=== PATIENT | female | born 1995 | race African-American/Black ===

== ENCOUNTER 2018-04-19 15:22 | Inpatient (IN) | payer SELFPAY ==
[2018-04-19 15:50] LABS: Absolute Lymphocytes (CBC) 1.9 K/uL (0.7-4.9); Absolute Monocytes 0.7 K/uL (0.1-1.3); Absolute Neutrophil 7.3 K/uL (1.8-8.0); Basophils % 0.5 % (0-1.3); Eosinophils % 1.1 % (0-4.4); Hematocrit 40.5 % (36.0-45.0); Lymphocytes % 18.7 % (15.3-44.8); MPV 8.9 fL (7.6-11.3); Monocytes % 7.2 % (3.3-12.3); RBC Red Blood Cell Count 4.61 M/uL (3.86-4.86)
[2018-04-19] MEDS ORDERED: ONDANSETRON 4 MG/2 ML VIAL ONE (16:23)
[2018-04-19] MEDS ORDERED: PROMETHAZINE 25 MG/ML VIAL ONE ×2 (16:24→18:26)
--- NOTE | 2018-04-19 16:46 | EKG ---
Test Date: 2018-04-19 Test Time: 15:37:18 Patient Care Technician Instructor: LORRIE MEASUREMENT RESULTS: Intervals: Rate: 85 AR: 150 QRSD: 82 QT: 408 QTc: 485 [place]: P: 75 AR: 150 QRS: 97 T: 60 INTERPRETIVE STATEMENTS: Normal sinus rhythm Rightward axis Prolonged QT Abnormal ECG No previous ECG available for comparison Electronically Signed On 04-19-18 16:45:18 ELECTRIC SYSTEM OPERATOR by Daniel Brown
[2018-04-19 17:19] LABS: Protime INR 1.24
[2018-04-19 17:32] LABS: ALT/SGPT 18 U/L (12-78); AST/SGOT 13 U/L (15-37); Albumin 4.1 g/dL (3.4-5.0); Alkaline Phosphatase 54 U/L (45-117); BUN Blood Urea Nitrogen 14 mg/dL (7-18); Bicarbonate 23 mmol/L (21-32); Bilirubin Direct 0.2 mg/dL (0-0.2); Bilirubin Total 0.5 mg/dL (0.2-1.0); Glucose Level 79 mg/dL (74-106); Potassium 4.3 mmol/L (3.5-5.1); Protein, Total 7.8 g/dL (6.4-8.2); Sodium Level 139 mmol/L (136-145)
--- NOTE | 2018-04-19 17:53 | ER ---
Nurse's Notes [facility] Name: Caprice Rojas Age: 22 yrs Sex: Female : 1995 Arrival Date: 04/19/2018 Time: 15:32 Bed 3 Private MD: Diagnosis: Suicide attempt Presentation: 04/19 15:20 Presenting complaint: EMS states: Pt took 10 tabs of Sertraline 50 mg, 3 tabs of sv Wellbutrin XL 150 mg, 3 tabs of Clonazepam 1mg starting about 2 hours ago. Pt was found by the friend and called EMS, friend made her vomit but no pill fragments came out. ST, 20 G L AC, BP 138/80 HR-102 99% RA RR-16. Transition of care: patient was not received from another setting of care. Onset of symptoms was April 19, 2018 at 13:00. Risk Assessment: Do you want to hurt yourself or someone else? Patient reports desire/thoughts of hurting themselves or someone else. Provider notified. Initial Sepsis Screen: Does the patient meet any 2 criteria? No. Patient's initial sepsis screen is negative. Does the patient have a suspected source of infection? No. Patient's initial sepsis screen is negative. Care prior to arrival: IV initiated. 20 GA, in the left antecubital area. 15:20 Method Of Arrival: EMS: [facility] sv 15:20 Acuity: JARVIS 2 sv 15:30 Note Pt asked the reason for taking an excess amount of pills. Pt stated "I wanted to sv .". Triage Assessment: 15:30 General: Appears in no apparent distress. comfortable, slender, well developed, sv Behavior is cooperative, drowsy. Pain: Complains of pain in head. Neuro: Level of Consciousness is obeys commands, lethargic, Oriented to person, place, time, situation, Moves all extremities. Full function Gait is steady, Speech is normal, Reports dizziness, headache. 15:30 Cardiovascular: Patient's skin is warm and dry. Rhythm is sinus rhythm. Respiratory: sv Respiratory effort is even, unlabored, Respiratory pattern is regular, symmetrical. Derm: Skin is pink, warm \\T\\ dry. Historical: - Allergies: 15:53 No Known Allergies; sv - Home Meds: 15:54 Wellbutrin XL 150 mg Oral Tb24 1 tab once daily [Active]; sertraline 50 mg oral tab 1 sv tab once daily [Active]; - PMHx: 15:53 Depression; Anxiety; sv - PSHx: 15:53 None; sv - Immunization history:: Adult Immunizations up to date. - Ebola Screening: : No symptoms or risks identified at this time. - Social history:: Smoking status: unknown. Screenin:56 Abuse screen: Denies threats or abuse. Denies injuries from another. Nutritional sv screening: No deficits noted. Tuberculosis screening: No symptoms or risk factors identified. Fall Risk None identified. Assessment: 15:35 Reassessment: Case # [id number], spoke with Ranjith from the [facility] poison control. sv Stated to have pt be on continuous cardiac monitoring, EKG now and repeat in 6 hrs and check for QT prolongation, toxic workup, psych consult, observation 24 hrs. With Sertraline watch for seizures, dry mouth, headache, tachycardia, provide symptomatic care. Wellbutrin XL watch for tremors and mild HTN. May give Benzo's prn for agitation, seizures, or tremors. 16:15 Reassessment: Patient appears in no apparent distress at this time. No changes from sv previously documented assessment. Patient and/or family updated on plan of care and expected duration. Pain level reassessed. Patient is alert, oriented x 3, equal unlabored respirations, skin warm/dry/pink. GI: Pt is actively vomiting bile. 19:15 Reassessment: Patient appears in no apparent distress at this time. Patient resting, lp1 eyes closed, respirations unlabored; easy to arouse; Family at bedside, aware of admission. Derm: Skin is pink, warm \\T\\ dry. Psych: 15:45 Safety Checks: Personal items have been removed. Door is open. No visitors are present sv at this time. 15:55 Subjective: Patient's mood is sad, hopeless, Delusions are denied, Hallucinations are sv denied Having thoughts of suicide. Plan for suicide is pt overdosed on Sertraline, Wellbutrin XL, Clonazepam, stated "I wanted to .". Objective: Patient is cooperative, Speech is soft, Affect is flat. Interventions: Removed personal items and placed in bag. Patient placed in hospital gown. Searched person for dangerous items. Belonging list filled out. Patient reassessed during use of restraints. Patient is physically safe. Patient's cardiac status is stable. Patient's respirations are even and unlabored. Patient has good circulation in all extremities as indicated by capillary refill < 3 seconds. Patient's ROM assessed and is intact. Patient nutrition and hydration needs will continue to be monitored and addressed. Patient hygiene and elimination needs met. Patient assessed for signs of distress. Patient remains reasonably comfortable at this time. Assisted patient in de-escalation of behavior by removing stimuli causing behavior where possible. Suicide Risk Assessment: Sad Person Scale: Sex of patient: Female: Score 0 points. Age of patient: Score 1 point if patient 15-34. Depression: Score 1 point if signs of depression are present. Previous Attempt: Score 1 point if patient has previously attempted suicide. Substance Abuse: Score 0 point if patient does not abuse alcohol or drugs. Rational Thinking: Score 0 point if patient has rational thinking. Social Support: Score 0 if social support is present/available. Organized Plan: Score 1 point if patient had a plan in place. Relationship: Score 1 point if patient is , , , or for a single male Chronic Sickness: Score 0 point if patient does not have a chronic illness, debilitating, or severe disorder. TOTAL POINTS: If total points are 5-6, proposed clinical action is to strongly consider hospitalization, depending upon confidence in the follow-up arrangement. Implement suicide precautions. Pt denies substance abuse. Commitment: Patient will be a voluntary commitment. Overdose: 15:55 Patient took 10 tabs Sertraline 50 mg, 3 tabs Wellbutrin XL 150 mg, 3 tabs Clonazepam 1 sv mg. Overdose occurred 2-3 hours ago. Vital Signs: 15:30 BP 130 / 87; Pulse 103; Resp 22; Temp 98.5; Pulse Ox 100% ; Weight 49.9 kg; Height 5 sv ft. 3 in. (160.02 cm); Pain 4/10; 15:53 BP 105 / 64; Pulse 81; Resp 18; Pulse Ox 100% on R/A; jb1 16:53 BP 108 / 67; Pulse 91; Resp 17; Pulse Ox 100% on R/A; jb1 18:32 BP 92 / 58; Pulse 78; Resp 14; Pulse Ox 100% on R/A; mt 19:11 BP 108 / 74; Pulse 74; Resp 14; Pulse Ox 100% on R/A; mt 15:30 Body Mass Index 19.49 (49.90 kg, 160.02 cm) sv ED Course: 15:20 Initial lab(s) drawn, by me, sent to lab. Maintain EMS IV. Dressing intact. Good blood sv return noted. Site clean \\T\\ dry. Gauge \\T\\ site: 20G L AC. Flushed left antecubital with 5 ml normal saline. 15:30 Patient has correct armband on for positive identification. Placed in gown. Bed in low sv position. Side rails up X2. Seizure precautions initiated. surveillance system monitor on. Pulse ox on. NIBP on. Warm blanket given. Head of bed elevated. 15:32 Patient arrived in ED. jr8 15:32 Rickie Castro PA is PHCP. jr8 15:32 Jose Niño MD is Attending Physician. jr8 15:34 Kat Flores RN is Primary Nurse. sv 15:45 Safety checks: Items removed: Door open/sign placed on door: yes. Sitter present: Yes. jb1 15:52 Triage completed. sv 16:00 Safety checks: Items removed: yes. Door open/sign placed on door: yes. Family/friend jb1 present: no. Sitter present: Yes. 16:15 Safety checks: Items removed: yes. Door open/sign placed on door: yes. Family/friend jb1 present: yes. Family/friends encouraged to stay with patient. Sitter present: Yes. 16:18 Lab(s) recollected, by me, sent to lab. jb1 16:28 EKG done, by electron beam photo mask technician. reviewed by Rickie CALDERON. 3 16:30 Safety checks: Items removed: yes. Door open/sign placed on door: yes. Family/friend jb1 present: yes. Family/friends encouraged to stay with patient. Sitter present: Yes. 16:45 Safety checks: Items removed: yes. Door open/sign placed on door: yes. Family/friend jb1 present: no. Sitter present: Yes. 17:00 Safety checks: Items removed: yes. Door open/sign placed on door: yes. Family/friend jb1 present: no. Sitter present: Yes. 17:15 Safety checks: Items removed: yes. Door open/sign placed on door: yes. Family/friend jb1 present: no. Sitter present: Yes. 17:30 Safety checks: Items removed: yes. Door open/sign placed on door: yes. Family/friend jb1 present: no. Sitter present: Yes. 17:41 Safety checks: Items removed: yes. Door open/sign placed on door: yes. Family/friend jb1 present: yes. Family/friends encouraged to stay with patient. Sitter present: Yes. 17:45 Safety Checks: Personal items have been removed. The door is open or patient has been sv placed in a hallway bed/chair. A family member and/or friend is present and encouraged to stay. Sitter present at this time. 17:52 Bryan Lewis MD is Hospitalizing Provider. jr8 18:00 Safety checks: Items removed: yes. Door open/sign placed on door: yes. Family/friend mt present: yes. Sitter present: Yes. 18:15 Safety checks: Items removed: yes. Door open/sign placed on door: yes. Family/friend mt present: yes. Sitter present: Yes. 18:30 Safety checks: Items removed: yes. Door open/sign placed on door: yes. Family/friend mt present: yes. Sitter present: Yes. 18:35 Straight cath inserted, using sterile technique, 16 Fr. Could not get a urine sample lt1 from the straight cath. Patient voided in a bed coe. 18:45 Safety checks: Items removed: yes. Door open/sign placed on door: yes. Family/friend mt present: yes. Sitter present: Yes. 19:00 Safety checks: Items removed: yes. Door open/sign placed on door: yes. Family/friend mt present: yes. Sitter present: Yes. 19:00 Urine --Ancillary (enter results) Sent. sv 19:00 Urine Dipstick--Ancillary (enter results) Sent. sv 19:15 Safety checks: Items removed: yes. Door open/sign placed on door: yes. Family/friend mt present: yes. Sitter present: Yes. 19:20 Report given to Tamera RN and Karina RN. sv 19:29 Primary Nurse role handed off by Kat Flores RN sv 19:39 Karina Quinn, RN is Primary Nurse. lp1 19:41 Arm band placed on. lp1 19:41 No provider procedures requiring assistance completed. Patient admitted, IV remains in lp1 place. Administered Medications: 16:19 Drug: Phenergan 6.25 mg Route: IVP; Site: left antecubital; sv 16:59 Follow up: Response: No adverse reaction sv 18:00 Drug: Phenergan 6.25 mg Route: IVP; Site: left antecubital; sv 18:30 Follow up: Response: No adverse reaction sv 18:00 Drug: NS 0.9% 1000 ml Route: IV; Rate: 1000 ml; Site: left antecubital; sv 19:42 Follow up: IV Status: Completed infusion; IV Intake: 1000ml lp1 Intake: 19:42 IV: 1000ml; Total: 1000ml. lp1 Outcome: 17:52 Decision to Hospitalize by Provider. jr8 19:42 critical lp1 19:42 Instructed on the need for admit. 19:45 Admitted to ICU accompanied by nurse, accompanied by tech, family with patient, via lp1 stretcher, room 3, on monitor, with chart, Report called to Saba Jewell RN 19:45 Patient left the ED. lp1 Signatures: [place] jb1 Kat Flores, RN RN Karina Quinn, RN RN lp1 Rickie Castro PA PA 8 Josh, Shannan nd Jewels rOr [facility] Corrections: (The following items were deleted from the chart) 16:23 15:43 Safety checks: Items removed: Door open/sign placed on door: yes. Sitter present: jb1 Yes. lt1 16:23 15:54 Safety checks: Items removed: yes. Door open/sign placed on door: yes. jb1 Family/friend present: no. Sitter present: Yes. jb1 16:23 16:18 Safety checks: Items removed: yes. Door open/sign placed on door: yes. jb1 Family/friend present: yes. Family/friends encouraged to stay with patient. Sitter present: Yes. jb1 16:57 16:53 BP 99 / 59; Pulse 79bpm; Resp 17bpm; Pulse Ox 100% RA; jb1 jb1 17:22 16:57 Safety checks: Items removed: yes. Door open/sign placed on door: yes. jb1 Family/friend present: no. Sitter present: Yes. jb1 17:23 17:23 Safety checks: Items removed: yes. Door open/sign placed on door: yes. jb1 Family/friend present: no. Sitter present: Yes. jb1 19:59 19:58 Patient left the ED. lp1 lp1
--- NOTE | 2018-04-19 17:53 | EDPHYS ---
Physician Documentation [facility] Name: Caprice Rojas Age: 22 yrs Sex: Female : 1995 Arrival Date: 04/19/2018 Time: 15:32 Bed 3 Private MD: ED Physician Jose Niño HPI: 04/19 15:49 This 22 yrs old Black Female presents to ER via Unassigned with complaints of Overdose. jr8 15:49 The patient presents to the emergency department after a known overdose, that was jr8 intentional. Context: Method: the patient has a confirmed or suspected ingestion, of benzodiazepines, zoloft, Wellbutrin , Time: 2 hour(s) ago, the OD/poisoning occurred at at home, Psychiatric history: the patient has a known psychiatric disorder, depression, Previous OD/poisoning history: none. Associated signs and symptoms: Pertinent positives: depression. Severity of symptoms: At their worst the symptoms were moderate in the emergency department the symptoms are unchanged. The patient has not experienced similar symptoms in the past. The patient has not recently seen a physician. Stated that she has had increased anxiety and depression due to financial status and living situation. Came to a climactic point today in which she felt the urge to kill herself. Took three Wellbutrin, three Klonopin, and ten Zoloft in about a 2 hours period of time. Denies having ever tried to kill herself before . Historical: - Allergies: 15:53 No Known Allergies; sv - Home Meds: 15:54 Wellbutrin XL 150 mg Oral Tb24 1 tab once daily [Active]; sertraline 50 mg oral tab 1 sv tab once daily [Active]; - PMHx: 15:53 Depression; Anxiety; sv - PSHx: 15:53 None; sv - Immunization history:: Adult Immunizations up to date. - Ebola Screening: : No symptoms or risks identified at this time. - Social history:: Smoking status: unknown. ROS: 15:54 Eyes: Negative for injury, pain, redness, and discharge, ENT: Negative for injury, jr8 pain, and discharge, Neck: Negative for injury, pain, and swelling, Cardiovascular: Negative for chest pain, palpitations, and edema, Respiratory: Negative for shortness of breath, cough, wheezing, and pleuritic chest pain, Abdomen/GI: Negative for abdominal pain, nausea, vomiting, diarrhea, and constipation, Back: Negative for injury and pain, MS/Extremity: Negative for injury and deformity, Skin: Negative for injury, rash, and discoloration, Neuro: Negative for headache, weakness, numbness, tingling, and seizure. 15:54 Psych: Positive for anxiety, depression, suicide gesture. Exam: 15:54 Eyes: Pupils equal round and reactive to light, extra-ocular motions intact. Lids and jr8 lashes normal. Conjunctiva and sclera are non-icteric and not injected. Cornea within normal limits. Periorbital areas with no swelling, redness, or edema. ENT: Nares patent. No nasal discharge, no septal abnormalities noted. Tympanic membranes are normal and external auditory canals are clear. Oropharynx with no redness, swelling, or masses, exudates, or evidence of obstruction, uvula midline. Mucous membranes moist. Neck: Trachea midline, no thyromegaly or masses palpated, and no cervical lymphadenopathy. Supple, full range of motion without nuchal rigidity, or vertebral point tenderness. No Meningismus. Chest/axilla: Normal chest wall appearance and motion. Nontender with no deformity. No lesions are appreciated. Cardiovascular: Regular rate and rhythm with a normal S1 and S2. No gallops, murmurs, or rubs. Normal PMI, no JVD. No pulse deficits. Respiratory: Lungs have equal breath sounds bilaterally, clear to auscultation and percussion. No rales, rhonchi or wheezes noted. No increased work of breathing, no retractions or nasal flaring. Abdomen/GI: Soft, non-tender, with normal bowel sounds. No distension or tympany. No guarding or rebound. No evidence of tenderness throughout. Back: No spinal tenderness. No costovertebral tenderness. Full range of motion. Skin: Warm, dry with normal turgor. Normal color with no rashes, no lesions, and no evidence of cellulitis. MS/ Extremity: Pulses equal, no cyanosis. Neurovascular intact. Full, normal range of motion. Neuro: Awake and alert, GCS 15, oriented to person, place, time, and situation. Cranial nerves II-XII grossly intact. Motor strength 5/5 in all extremities. Sensory grossly intact. Cerebellar exam normal. Normal gait. 15:54 Psych: Behavior/mood is cooperative, suicidal, depressed, Affect is calm, Oriented to person, place, time, Patient having thoughts of suicide. Plan for suicide is See HPI Memory is normal. Delusions/hallucinations are not present. Vital Signs: 15:30 BP 130 / 87; Pulse 103; Resp 22; Temp 98.5; Pulse Ox 100% ; Weight 49.9 kg; Height 5 sv ft. 3 in. (160.02 cm); Pain 4/10; 15:53 BP 105 / 64; Pulse 81; Resp 18; Pulse Ox 100% on R/A; jb1 16:53 BP 108 / 67; Pulse 91; Resp 17; Pulse Ox 100% on R/A; jb1 18:32 BP 92 / 58; Pulse 78; Resp 14; Pulse Ox 100% on R/A; mt 19:11 BP 108 / 74; Pulse 74; Resp 14; Pulse Ox 100% on R/A; mt 15:30 Body Mass Index 19.49 (49.90 kg, 160.02 cm) sv MDM: 15:32 Patient medically screened. [facility] 17:51 Data reviewed: vital signs, nurses notes, lab test result(s), EKG. Data interpreted: jr8 Pulse oximetry: on room air is 100 %. Interpretation: normal. Counseling: I had a detailed discussion with the patient and/or guardian regarding: the historical points, exam findings, and any diagnostic results supporting the discharge/admit diagnosis, lab results, the need for further work-up and treatment in the hospital. Physician consultation: Bryan Lewis MD was called at 17:52, was contacted at 17:52, regarding admission, to the ICU, consult, patient's condition, and will see patient in ED. 04/19 15:32 Order name: Acetaminophen; Complete Time: 17:41 04/19 15:32 Order name: Basic Metabolic Panel; Complete Time: 17:41 04/19 15:32 Order name: CBC with Diff; Complete Time: 15:55 04/19 15:32 Order name: ETOH Level; Complete Time: 17:41 04/19 15:32 Order name: Hepatic Function; Complete Time: 17:41 04/19 15:32 Order name: PT-INR; Complete Time: 17:41 04/19 15:32 Order name: Ptt, Activated; Complete Time: 17:41 04/19 15:32 Order name: Salicylate; Complete Time: 18:06 [facility] 04/19 15:32 Order name: Urine Drug Screen; Complete Time: 18:55 [facility] 04/19 18:34 Order name: Urine Dipstick--Ancillary (enter results) 04/19 18:34 Order name: Urine --Ancillary (enter results) 04/19 18:49 Order name: Urine --Ancillary; Complete Time: 18:55 [facility] 04/19 18:49 Order name: Urine Dipstick-Ancillary; Complete Time: 18:55 [facility] 04/19 15:32 Order name: Urine Test (obtain specimen); Complete Time: 18:26 [facility] 04/19 15:32 Order name: EKG; Complete Time: 15:33 [facility] 04/19 15:32 Order name: EKG - Nurse/Tech; Complete Time: 15:47 [facility] 04/19 15:32 Order name: IV Saline Lock; Complete Time: 15:47 [facility] 04/19 15:32 Order name: Labs collected and sent; Complete Time: 15:47 [facility] 04/19 15:32 Order name: Urine Dipstick-Ancillary (obtain specimen); Complete Time: 18:26 [facility] Administered Medications: 16:19 Drug: Phenergan 6.25 mg Route: IVP; Site: left antecubital; sv 16:59 Follow up: Response: No adverse reaction sv 18:00 Drug: Phenergan 6.25 mg Route: IVP; Site: left antecubital; sv 18:30 Follow up: Response: No adverse reaction sv 18:00 Drug: NS 0.9% 1000 ml Route: IV; Rate: 1000 ml; Site: left antecubital; sv 19:42 Follow up: IV Status: Completed infusion; IV Intake: 1000ml lp1 Disposition: 04/19/18 17:52 Hospitalization ordered by Bryan Lewis for Inpatient Admission. Preliminary diagnosis is Suicide attempt. - Bed requested for Intensive Care Unit. - Status is Inpatient Admission. lp1 - Condition is Stable. - Problem is new. - Symptoms have improved. UTI on Admission? No Addendum: 04/23/2018 11:06 Co-signature as Attending Physician, Jose Niño MD I agree with the assessment and c rincon plan of care. Signatures: Dispatcher [employer] EDAndreas Lynie, RN RN sv Jose Niño MD MD cha Pena, Laura, TONIA RN lp1 Rickie Castro PA PA jr8 Diann Carmona Corrections: (The following items were deleted from the chart) 04/19 15:54 15:49 stated that she has had increased anxiety and depression due to financial status jr8 and living situation. came to a climactic point today in which she felt the urge to kill herself. Took three Wellbutrin, three Klonopin, and ten Zoloft in about a 2 hours period of time . jr8 17:53 17:52 Hospitalization Ordered by Bryan Lewis MD for Observation. Preliminary diagnosis jr8 is Suicide attempt. Bed requested for Intensive Care Unit. Status is Observation. Condition is Stable. Problem is new. Symptoms have improved. UTI on Admission? No. jr8 18:26 17:51 [place] ordered. jr8 18:37 17:53 04/19/2018 17:52 Hospitalization Ordered by Bryan Lewis MD for Inpatient eb Admission. Preliminary diagnosis is Suicide attempt. Bed requested for Intensive Care Unit. Status is Inpatient Admission. Condition is Stable. Problem is new. Symptoms have improved. UTI on Admission? No. jr8 19:58 18:37 04/19/2018 17:52 Hospitalization Ordered by Bryan Lewis MD for Inpatient 1 Admission. Preliminary diagnosis is Suicide attempt. Bed requested for Intensive Care Unit. Status is Inpatient Admission. Condition is Stable. Problem is new. Symptoms have improved. UTI on Admission? No. eb
[2018-04-19] MEDS ORDERED: NA CHLORIDE 0.9% 1,000 ML ONE (18:27)
[2018-04-19 18:48] LABS: Barbiturates NEGATIVE (NEGATIVE); Benzodiazepines POSITIVE (NEGATIVE); Cocaine NEGATIVE (NEGATIVE); METHAMPHETAM NEGATIVE (NEGATIVE); Methadone NEGATIVE (NEGATIVE); Opiates NEGATIVE (NEGATIVE); Phencyclidine NEGATIVE (NEGATIVE); THC Cannibis NEGATIVE (NEGATIVE)
[2018-04-19 18:48] LABS: Urine Blood 1+ (NEG); Urine Glucose NEGATIVE (NEG); Urine Protein TRACE (NEG); Urine pH 5.5 (5.0-7.0)
[2018-04-19] MEDS ORDERED: ACETAMINOPHEN 500 MG TAB PO PRN (20:12)
--- NOTE | 2018-04-19 20:29 | P.HP ---
Certification for Inpatient Patient admitted to: Inpatient With expected LOS: >2 Midnights Practitioner: I am a practitioner with admitting privileges, knowledge of patient current condition, hospital course, and medical plan of care. Services: Services provided to patient in accordance with Admission requirements found in Title 42 Section 412.3 of the Code of Federal Regulations Patient History Date of Service: 04/19/18 Reason for admission: suicidal attempt, drug overdose History of Present Illness: Ms Rojas is a 22 years old woman with history of depression and anxiety, who was found by a friend this afternoon, after ingest intentionally 10 tabs of Sertraline 50 mg, 3 tabs of Wellbutrin XL 150 mg, 3 tabs of Clonazepam 1mg. Her friend made her vomiting but no pill came out. At arrival she was drowsy but cooperative. She stated that she took the pills because she wanted to . Lab work at arrival was mostly unremarkable, UA shows trace leukocyte esterase, EKG SR with QT prolongation. Allergies No Known Allergies Allergy (Unverified 04/19/18 20:12) Home medications list reviewed: Yes - Past Medical/Surgical History -: depression -: anxiety Past Surgical History: Reviewed- Non-Contributory - Family History Family History: Reviewed- Non-Contributory - Social History Smoking Status: Unknown if ever smoked Place of Residence: Home Review of Systems 10-point ROS is otherwise unremarkable Physical Examination - Vital Signs Temperature: 98.5 F Blood Pressure: 108/74 Pulse: 74 Respirations: 14 - Physical Exam General: In no apparent distress, Other (drowsy but able to answer questions and follow commands.) HEENT: Atraumatic, Mucous membr. moist/pink, Other (pupils are dilated but reactive to light. ), EOMI, Sclerae nonicteric Neck: Supple, 2+ carotid pulse no bruit, No LAD, Without JVD or thyroid abnormality Respiratory: Clear to auscultation bilaterally, Normal air movement Cardiovascular: Regular rate/rhythm, Normal S1 S2 Gastrointestinal: Normal bowel sounds, No tenderness Musculoskeletal: No tenderness Integumentary: No rashes Neurological: Normal strength at 5/5 x4 extr, Abnormal speech (slurred), Abnormal tone (flaccid), Abnormal affect Lymphatics: No axilla or inguinal lymphadenopathy - Studies Laboratory Data (last 24 hrs) 04/19/18 16:05: PT 14.7 H, INR 1.24, APTT 26.9 04/19/18 16:05: Sodium 139, Potassium 4.3, BUN 14, Creatinine 0.74, Glucose 79, Total Bilirubin 0.5, AST 13 L, ALT 18, Alkaline Phosphatase 54 04/19/18 15:35: WBC 10.2, Hgb 13.6, Hct 40.5, Plt Count 257 Assessment and Plan - Problems (Diagnosis) (1) Suicide attempt Current Visit: Yes Status: Acute (2) Drug overdose Current Visit: Yes Status: Acute Qualifiers: Encounter type: initial encounter Injury intent: intentional self-harm Qualified Code(s): T50.902A - Poisoning by unspecified drugs, medicaments and biological substances, intentional self-harm, initial encounter (3) Depression Current Visit: Yes Status: Acute Qualifiers: Depression Type: major depressive disorder Major depression recurrence: unspecified whether recurrent Active/Remission status: currently active Major depression episode severity: unspecified Qualified Code(s): F32.9 - Major depressive disorder, single episode, unspecified - Plan The case was reported to poison control. They have recommend to monitor for 24Hr , seizure precautions, electrolyte follow up, and assistant track and field coach. The patient is in ICU. The patient will be transfer to psych facility for stabilization once clinically clear. Will start empiric antibiotic treatment for no complicated UTI. - Advance Directives Does patient have a Living Will: No Does patient have a Durable POA for Healthcare: No - Code Status/Comfort Care Code Status Assessed: Yes Code Status: Full Code
[2018-04-19] MEDS: D5 0.45 NS 1,000 ML IV SCH (21:55)
[2018-04-19] MEDS: Ciprofloxacin 200mg IV 200 MG/100 ML IV.SOLN. IV SCH (21:58)
[2018-04-20 00:41] LABS: BUN Blood Urea Nitrogen 12 mg/dL (7-18); Bicarbonate 23 mmol/L (21-32); Glucose Level 119 mg/dL (74-106); Magnesium 2.1 mg/dL (1.8-2.4); Phosphorus 3.1 mg/dL (2.5-4.9); Sodium Level 139 mmol/L (136-145)
[2018-04-20 05:18] LABS: Absolute Lymphocytes (CBC) 1.7 K/uL (0.7-4.9); Absolute Neutrophil 8.4 K/uL (1.8-8.0); Basophils % 0.6 % (0-1.3); Eosinophils % 0.6 % (0-4.4); Hematocrit 34.9 % (36.0-45.0); Lymphocytes % 15.2 % (15.3-44.8); MPV 9.1 fL (7.6-11.3); Monocytes % 8.6 % (3.3-12.3); RBC Red Blood Cell Count 3.95 M/uL (3.86-4.86)
[2018-04-20 05:35] LABS: ALT/SGPT 15 U/L (12-78); AST/SGOT 11 U/L (15-37); Albumin 3.2 g/dL (3.4-5.0); Alkaline Phosphatase 43 U/L (45-117); BUN Blood Urea Nitrogen 9 mg/dL (7-18); Bicarbonate 23 mmol/L (21-32); Bilirubin Total 0.8 mg/dL (0.2-1.0); Glucose Level 97 mg/dL (74-106); Magnesium 2.2 mg/dL (1.8-2.4); Phosphorus 3.2 mg/dL (2.5-4.9); Protein, Total 6.4 g/dL (6.4-8.2); Sodium Level 139 mmol/L (136-145)
[2018-04-20] MEDS: D5 0.45 NS 1,000 ML IV SCH (06:10)
--- NOTE | 2018-04-20 08:27 | EKG ---
Test Date: 2018-04-20 Test Time: 00:22:50 Metal Drill Operator: RT MEASUREMENT RESULTS: Intervals: Rate: 86 SC: 146 QRSD: 86 QT: 414 QTc: 495 [place]: P: 72 SC: 146 QRS: 98 T: 56 INTERPRETIVE STATEMENTS: Normal sinus rhythm Rightward axis Prolonged QT Abnormal ECG Compared to ECG 04/19/2018 15:37:18 No significant changes Electronically Signed On 04-20-18 08:26:19 BASTING MACHINE OPERATOR by Daniel Brown
[2018-04-20] MEDS: Ciprofloxacin 200mg IV 200 MG/100 ML IV.SOLN. IV SCH (08:45)
[2018-04-20] MEDS ORDERED: ENOXAPARIN 40 MG/0.4 ML SQ SCH (09:00)
[2018-04-20] MEDS ORDERED: INFLUENZA VACCINE (for 3y+) 0.5 ML DOSE IMVAC ONE (09:00)
--- NOTE | 2018-04-20 12:10 | EKG ---
Test Date: 2018-04-20 Test Time: 08:53:16 Cost And Sales Record Supervisor: RT MEASUREMENT RESULTS: Intervals: Rate: 73 MA: 140 QRSD: 84 QT: 414 QTc: 456 [place]: P: 71 MA: 140 QRS: 94 T: 58 INTERPRETIVE STATEMENTS: Normal sinus rhythm Rightward axis Borderline ECG Compared to ECG 04/20/2018 00:22:50 Prolonged QT interval no longer present Electronically Signed On 04-20-18 12:09:21 SAMPLER RADIOACTIVE WASTE by Daniel Brown
--- NOTE | 2018-04-20 16:22 | P.PN ---
Subjective Date of Service: 04/20/18 Chief Complaint: suicidal attempt, drug overdose Subjective: Improving Patient seen and examined chart reviewed and case discussed with RN. No acute events overnight. Patient much more awake and alert this morning. Review of Systems 10-point ROS is otherwise unremarkable Physical Examination - Vital Signs Temperature: 98.6 F Blood Pressure: 101/56 Pulse: 73 Respirations: 16 Pulse Ox (%): 76 - Physical Exam General: Alert, In no apparent distress, Oriented x3 HEENT: Atraumatic, PERRLA, EOMI Neck: Supple, JVD not distended Respiratory: Clear to auscultation bilaterally, Normal air movement Cardiovascular: No edema, Normal pulses, Regular rate/rhythm, Normal S1 S2 Gastrointestinal: Normal bowel sounds, Soft and benign, Non-distended, No tenderness Musculoskeletal: No clubbing, No tenderness Integumentary: No rashes, No erythema, No cyanosis Neurological: Normal speech, Normal strength at 5/5 x4 extr, Normal tone, Cranial nerves 3-12 intact, Normal affect - Studies Laboratory Data (last 24 hrs) 04/19/18 16:05: PT 14.7 H, INR 1.24, APTT 26.9 04/19/18 16:05: Sodium 139, Potassium 4.3, BUN 14, Creatinine 0.74, Glucose 79, Total Bilirubin 0.5, AST 13 L, ALT 18, Alkaline Phosphatase 54 Medications List Reviewed: Yes Assessment And Plan - Current Problems (Diagnosis) (1) Suicide attempt Current Visit: Yes Status: Acute (2) QT prolongation Current Visit: Yes Status: Acute (3) Depression Current Visit: Yes Status: Acute Qualifiers: Depression Type: major depressive disorder Major depression recurrence: unspecified whether recurrent Active/Remission status: currently active Major depression episode severity: unspecified Qualified Code(s): F32.9 - Major depressive disorder, single episode, unspecified (4) Drug overdose Current Visit: Yes Status: Acute Qualifiers: Encounter type: initial encounter Injury intent: intentional self-harm Qualified Code(s): T50.902A - Poisoning by unspecified drugs, medicaments and biological substances, intentional self-harm, initial encounter - Plan Repeat EKG [facility] eval Continue suicide precautions Continue cardiac telemetry Regular diet Dc IV fluid Discontinue antibiotics no signs of UTI no dysuria Discharge Plan: Psychiatry Plan to discharge in: 24 Hours - Code Status/Comfort Care Code Status Assessed: Yes
--- NOTE | 2018-04-20 17:30 | P.DS ---
Admission Date: 04/19/18 Discharge Date: 04/20/18 Disposition: ROUTINE DISCHARGE Discharge Condition: GOOD Reason for Admission: suicidal attempt, drug overdose - Problems (1) Suicide attempt Current Visit: Yes Status: Acute (2) QT prolongation Current Visit: Yes Status: Acute (3) Depression Current Visit: Yes Status: Acute Qualifiers: Depression Type: major depressive disorder Major depression recurrence: unspecified whether recurrent Active/Remission status: currently active Major depression episode severity: unspecified Qualified Code(s): F32.9 - Major depressive disorder, single episode, unspecified (4) Drug overdose Current Visit: Yes Status: Acute Qualifiers: Encounter type: initial encounter Injury intent: intentional self-harm Qualified Code(s): T50.902A - Poisoning by unspecified drugs, medicaments and biological substances, intentional self-harm, initial encounter Brief History of Present Illness: Ms Rojas is a 22 years old woman with history of depression and anxiety, who was found by a friend this afternoon, after ingest intentionally 10 tabs of Sertraline 50 mg, 3 tabs of Wellbutrin XL 150 mg, 3 tabs of Clonazepam 1mg. Her friend made her vomiting but no pill came out. At arrival she was drowsy but cooperative. Hospital Course: Patient is a 22 yo F who was admitted for suicide attempt following drug overdose. Patient was drowsy, had prolonged QT. Patient was admitted to ICU/ Poison control was contacted. Recommendation were noted and followed. Patients QT interval improved. Patient was evaluated by [facility] and was not found to be suicidal. Patient denied any suicidal ideation. She does not wish to hurt herself. Patient agrees to follow up with [facility] Sunday. Parents at bedside. Pt does not have access to medications she took for overdose. She will now be staying w her mother. Patient was discharged home. Vital Signs/Physical Exam: Temp Pulse Resp BP Pulse Ox 99.1 F 80 15 102/84 85 L 04/20/18 17:06 04/20/18 17:06 04/20/18 17:06 04/20/18 17:06 04/20/18 17:06 Other Physical/Emotional Findings: FOR PHYSICAL EXAM FINIDINGS PLEASE SEE PROGRESS NOTE FROM EARLIER TODAY Laboratory Data at Discharge: WBC 11.2 K/uL (4.3-10.9) H 04/20/18 04:32 Hgb 11.8 g/dL (12.0-15.0) L 04/20/18 04:32 Hct 34.9 % (36.0-45.0) L 04/20/18 04:32 Plt Count 226 K/uL (152-406) 04/20/18 04:32 PT 14.7 SECONDS (9.5-12.5) H 04/19/18 16:05 INR 1.24 04/19/18 16:05 APTT 26.9 SECONDS (24.3-36.9) 04/19/18 16:05 Sodium 139 mmol/L (136-145) 04/20/18 04:32 Potassium 4.0 mmol/L (3.5-5.1) 04/20/18 04:32 BUN 9 mg/dL (7-18) 04/20/18 04:32 Creatinine 0.63 mg/dL (0.55-1.3) 04/20/18 04:32 Glucose 97 mg/dL (74-106) 04/20/18 04:32 Phosphorus 3.2 mg/dL (2.5-4.9) 04/20/18 04:32 Magnesium 2.2 mg/dL (1.8-2.4) 04/20/18 04:32 Total Bilirubin 0.8 mg/dL (0.2-1.0) 04/20/18 04:32 AST 11 U/L (15-37) L 04/20/18 04:32 ALT 15 U/L (12-78) 04/20/18 04:32 Alkaline Phosphatase 43 U/L (45-117) L 04/20/18 04:32 Home Medications: NK [No Home Meds] 04/19/18 Patient Discharge Instructions: f/up w [facility] on Sunday. Return to ER for worsening condition Diet: Regular Activity: Ad angelo Time spent managing pt's care (in minutes): 49
== END 2018-04-20 18:30 | disposition home or self-care (01) | DRG 918 ==
LOC: ER 15:22 → ERHOLD 17:54 → 3RD-ICU 19:33
PROVIDERS: ADMIT Family Medicine; ATTEND Family Medicine
DX: T50.992A Poisoning by other drugs, medicaments and biological substances, intentional self-harm, initial encounter (principal); F32.9 Major depressive disorder, single episode, unspecified; F41.8 Other specified anxiety disorders
CPT/HCPCS: 36415; 51702; 80048; 80053; 80076; 80307; 80320; 80329; 81003; 81025; 83735; 84100; 85025; 85610; 85730; 87077; 87086; 87088; 87186; 93005; 96361; 96374; 99285; J0744; J1650; J2405; J2550; J7030